=== PATIENT | male | born 1960 | race Caucasian/White ===

== ENCOUNTER 2016-11-11 14:16 | Inpatient (IN) ==
--- NOTE | 2016-11-10 21:45 | Discharge Summary ---
<Gretchen Yoon - Last Filed: 11/10/16 21:41> - Discharge Diagnosis (1) Arthritis of left hip Priority: Primary Status: Acute (2) Tobacco abuse Priority: Secondary Status: Chronic (3) Chronic obstructive pulmonary disease Priority: Secondary Status: Chronic Qualifiers: COPD type: unspecified COPD Qualified Code(s): J44.9 - Chronic obstructive pulmonary disease, unspecified (4) Spinal stenosis of lumbar region Priority: Secondary Status: Chronic (5) Tobacco abuse Priority: Secondary Status: Chronic - Discharge Medications Home Medications: Aspirin Enteric Coated [Aspirin EC] 325 mg PO DAILY #21 tablet. 11/10/16 [Rx] OxyCODONE Immed Rel [Roxicodone 5 MG] 5 - 10 mg PO Q6HR PRN #40 tablet 11/10/16 [Rx] Allergies/Adverse Reactions: Allergies ibuprofen [From Advil] Allergy (Mild, Verified 05/24/16 14:41) Hives venlafaxine [From Effexor] Allergy (Mild, Verified 05/24/16 14:41) Vomiting Primary care physician: Tai Mao DO - Patient Status Disposition: Home, Self-Care Condition: Good - Discharge Instructions Follow Up With: Luis Davalos MD [Partnered Physician] - 12/10/16 9:40 am Gretchen Yoon, KARLA [Physician Fence Maker] - 11/21/16 11:15 am Tai Mao DO [Primary Care Provider] - - Hospital Course Hospital course: Mr. Pope is a 56 year old male - Time Spent with Patient Total time spent providing and/or coordinating discharge services: <Luis Davalos - Last Filed: 11/13/16 06:30> Date of Encounter: 11/13/16 Time of Encounter: 06:29 - Discharge Diagnosis (1) Arthritis of left hip Priority: Primary Status: Acute (2) Tobacco abuse Priority: Secondary Status: Chronic (3) Anxiety Priority: Secondary Status: Chronic (4) Major depressive disorder, recurrent Priority: Secondary Status: Chronic Qualifiers: Active/Remission status: currently active Major depression episode severity : moderate Qualified Code(s): F33.1 - Major depressive disorder, recurrent, moderate (5) Suicidal ideation Priority: Secondary Status: Chronic (6) Chronic obstructive pulmonary disease Priority: Secondary Status: Chronic Qualifiers: COPD type: unspecified COPD Qualified Code(s): J44.9 - Chronic obstructive pulmonary disease, unspecified (7) Spinal stenosis of lumbar region Priority: Secondary Status: Chronic (8) Tobacco abuse Priority: Secondary Status: Chronic Primary care physician: Tai Moa DO - Patient Status Functional capacity at discharge: uses cane/walker Overall status at discharge: patient is progressing back to baseline - Hospital Course Hospital course: Mr. Pope is a 56 year old male uneventful post op course antibiotics and PT dc on asa dvt prophylaxis - Time Spent with Patient Total time spent providing and/or coordinating discharge services:
[2016-11-11] MEDS ORDERED: Famotidine 20 MG/2 ML VIAL IVP ONE (15:02)
[2016-11-11] MEDS ORDERED: Acetaminophen IV 1,000 MG/100 ML INFUS..BTL IVPB ONE (15:02)
--- NOTE | 2016-11-11 15:04 | History & Physical Report ---
Date of Encounter: 11/11/16 Time of Encounter: 15:04 24 Hour HP Update - Instructions Instructions: If the History and Physical is less than 30 days old and was completed prior to A.M. admission and or procedure and has NOT been updated on calendar day of procedure please complete this update prior to performing procedure. - Update Patient reports changes in Medical Condition: No Changes in assessment/condition: No Changes in Medication: No Preop tests/diagnostics Reviewed: Yes Surgery Remains Indicated: Yes Consent for Planned Operative Procedure(s) Verified: Yes - Pre-Operative Checklist Preoperative Checklist Indicated: No Prophylactic Antibiotic Ordered: Yes Is VTE Prophylaxis Indicated?: Yes
--- NOTE | 2016-11-11 15:05 | Anesthesia Evaluation PreOp ---
Date of Encounter: 11/11/16 Time of Encounter: 15:00 - Past History Planned Operation: Left Total Hip Cardiac History: Denies any Significant Hx, Other (Hx PE) Pulmonary History: Smoker HAND OUTSIDE CUTTER History: Denies Any Significant HX Other Medical History: Other (Osteoarthritis Hip) Anesthesia History: No Prior Anesthetic Complications Alcohol Use: none Drug use: none Medications and Allergies Methocarbamol [Robaxin-750] 750 mg PO QID PRN #20 tablet 10/20/16 [Rx] Tramadol HCl [Ultram] 50 mg PO QID PRN #16 tab 10/20/16 [Rx] Aspirin Enteric Coated [Aspirin EC] 325 mg PO DAILY #21 tablet. 11/10/16 [Rx] OxyCODONE Immed Rel [Roxicodone 5 MG] 5 - 10 mg PO Q6HR PRN #40 tablet 11/10/16 [Rx] Allergies ibuprofen [From Advil] Allergy (Mild, Verified 05/24/16 14:41) Hives venlafaxine [From Effexor] Allergy (Mild, Verified 05/24/16 14:41) Vomiting - Meds/Allergy Pre-op Review Medications Reviewed: Yes Allergies Reviewed: Yes Beta Blockers on Current Med List: No Anesthesia Results - Labs Laboratory Tests 11/05/16 11/05/16 16:05 16:05 Hgb 15.3 Hct 46.4 Plt Count 216 Sodium 135 L Potassium 4.5 BUN 14 Creatinine 1.15 Anesthesia Exam O2 Sat Height 1.8 m Weight 93.043 kg Height: 5'11 Weight: 205 lbs NPO (# of Hours): MN Pain Scale: 0 - HEENT Pupil (Motor): Pupils equal, EOMI Mallampati: II Teeth: Edentulous Oral Opening: Less than or equal to 3 - HAND OUTSIDE CUTTER LOC: Oriented HAND OUTSIDE CUTTER Motor: Normal RUE, Normal LUE, Normal RLE, Normal LLE, Normal Face HAND OUTSIDE CUTTER Sensory: Normal: RUE, LUE, RLE, LLE, Face - Cardiac Rhythm: Regular Murmur: None JVD: No Carotid Bruit: No - Pulmonary Breath Sounds: bilateral Clear Respiratory Effort: Symmetrical Anesthesia Assess/Plan ASA Score: 2 Modified Rhona Scale for Level of Consciousness: Cooperative, oriented, and tranquil Anesthetic Plan: General Monitoring Plan: Standard Monitors Recovery Plan: PACU (Discussed GA, agrees to proceed)
[2016-11-11] MEDS ORDERED: Albuterol 2.5 MG/3 ML NEBULIZER IH ONE (15:10)
[2016-11-11] MEDS ORDERED: CeFAZolin Pre 2,000 MG/100 ML 2,000 MG/100 ML BAG IVPB ONE (15:10)
[2016-11-11] MEDS ORDERED: Ringers Solution, Lactated 1,000 ML IVC SCH ×3 (15:15→18:42)
[2016-11-11] MEDS ORDERED: Lidocaine -MPF 2% 2 ML VIAL ONE (15:59)
[2016-11-11] MEDS ORDERED: *HR* Propofol 200 MG/20 ML VIAL IVP ONE (15:59)
[2016-11-11] MEDS ORDERED: *HR* FentaNYL (PF) 100 MCG/2 ML VIAL ONE (16:01)
[2016-11-11] MEDS ORDERED: *HR* Midazolam HCl 2 MG/2 ML VIAL ONE (16:01)
[2016-11-11] MEDS ORDERED: *HR* HYDROmorphone 2 MG/ML SYRINGE ONE (16:35)
--- NOTE | 2016-11-11 16:55 | Orthopedic Operative Note ---
Date of procedure: 11/11/16 Pre-op diagnosis: Left hip arthritis Post-op diagnosis: same Implants: Procedure: Left Total Hip Replacment Estimated blood loss: 200 cc Hardware: Biomet DM Cup: 56 G7 fin cup Femoral size 14 echo full profile lateralized stem Head: +3 head with Batsheva Procedural Notes: Grade 3 arthritic changes femoral head acetabular socket Operative procedure: The patient was brought to the operating room and placed on the operating room table. After general anesthesia was administered the patient was placed in the lateral decubitus position with the operative leg up. All pressure points were padded appropriately and the head was stabilized in the neutral position. The operative extremity was prepped and draped in the sterile surgical fashion patient received IV antibiotic prior to skin incision. A standard posterior approach is made to the operative hip, the incision was made through the skin and subcutaneous tissue hemostasis was obtained with Bovie cautery. Using careful sharp dissection the fascia was identified and incised exposing the external rotators. The external rotators were released off the greater trochanter and tagged with #2 FiberWire suture. The capsule was T'd open and the hip was brought into internal rotation. Patient noted to have grade 3 arthritic changes femoral head. The femoral neck cut was made at the appropriate level. An anterior capsulotomy was performed for the anterior retractor. Soft tissues removed from the acetabulum. Patient noted to have grade 3 arthritic changes acetabulum. Acetabulum was first reamed medially, and then reamed in 15 degrees of anteversion and 45 degrees off the horizontal. It was reamed up to the appropriate size 56 The appropriate-sized 56 acetabular cup was impacted in place in 15 degrees of anteversion and 45 degrees off the horizontal. This had good fit and fixation. The hip was brought back in to internal rotation and prepared with the box liner followed by the canal finder followed by broaching process in 20 degrees anteversion. It was broached up to the appropriate size 14. The femoral implant was impacted in place in 20 degrees of anteversion. Trial reduction found the hip to be stable with +3 head and Batsheva. The trials were removed and the real implants were impacted in place. The hip was reduced, patient had apparent equal leg lengths. The hip had excellent stability with forward flexion to 90 degrees adduction of 30 degrees and internal rotation of 60 degrees. The hip had no shuck. The hips after 2 minutes with a Betadine saline solution. It was irrigated out with 2 L of pulse irrigation. The external rotators were reattached to drill holes in the greater trochanter. Fascia was closed with a running #2 PDS suture. The deep tissue was irrigated and closed deep with #1 PDS suture superficially with 0 PDS suture and skin was closed with Dermabond and skin natalio. The patient was placed in a sterile dressing and abduction pillow. The patient was extubated and transferred to the recovery room in stable condition. Anesthesia: GETA Surgeon: Luis Davalos Condition: stable Disposition: PACU
[2016-11-11] MEDS ORDERED: *HR* Promethazine 25 MG/ML VIAL IVP PRN (16:57)
[2016-11-11] MEDS: *HR* HYDROmorphone (PF) 1 MG/ML SYRINGE IVP PRN ×7 (17:24→21:20)
[2016-11-11 17:47] LABS: Hematocrit 38.7 % (37.5-50.1)
[2016-11-11 17:48] LABS: Hemoglobin 12.5 g/dL (12.9-16.9)
[2016-11-11] MEDS ORDERED: *HR* Enoxaparin 30 MG/0.3 ML SYRINGE SQ SCH (18:00)
--- NOTE | 2016-11-11 18:18 | Anesthesia Evaluation Post Op ---
Date of Encounter: 11/11/16 Time of Encounter: 18:20 - Vital Signs Vital Signs: Vital Signs/O2 Sat/Glucose, Most Current Temp Pulse Resp BP Pulse Ox 11/11/16 18:08 78 24 112/91 95 11/11/16 17:58 80 22 125/79 97 11/11/16 17:48 98.2 F 80 24 123/72 97 11/11/16 17:38 75 24 104/74 96 11/11/16 17:28 87 20 122/89 95 11/11/16 17:23 83 16 118/99 96 11/11/16 17:18 97.9 F 79 12 127/88 95 11/11/16 15:12 98.1 F 82 18 135/85 96 - Lungs Lungs: Clear Ascult./Percussion - Airway Airway: Non-obstructed - Cardiovascular Regular Rate - Mental Status Mental Status: Alert & Oriented, Answers Appropriately - Pain Pain Scale: 2 - Nausea Vomiting Nausea Vomiting: Not Present - Hydration Hydration: Ice chips - Discharge PostOp Status: Transfer Patient to floor
[2016-11-11] MEDS ORDERED: Temazepam 15 MG CAPSULE PO PRN (18:42)
[2016-11-11] MEDS ORDERED: Ondansetron 4 MG/2 ML VIAL IVP PRN (18:42)
[2016-11-11] MEDS ORDERED: Sennosides 8.6 MG TABLET PO PRN (18:42)
[2016-11-11] MEDS ORDERED: Naloxone 0.4 MG/ML INJ IVP PRN (18:42)
[2016-11-11] MEDS ORDERED: *HR* OxyCODONE Immed Rel 5 MG TABLET PO PRN (18:42)
[2016-11-11] MEDS ORDERED: Acetaminophen 325 MG TABLET PO PRN (18:42)
[2016-11-11] MEDS ORDERED: MOM Conc 10 ML UD.LIQ PO PRN (18:42)
[2016-11-11] MEDS: *HR* OxyCODONE Immed Rel 5 MG TABLET PO PRN (19:53)
[2016-11-11] MEDS: Ascorbic Acid 500 MG TABLET PO SCH (19:53)
[2016-11-11] MEDS: ceFAZolin 2,000 MG in D5% in Water 100 ML IVPB SCH (22:49)
[2016-11-12] MEDS: *HR* HYDROmorphone (PF) 1 MG/ML SYRINGE IVP PRN ×8 (00:03→22:35)
[2016-11-12] MEDS: *HR* OxyCODONE Immed Rel 5 MG TABLET PO PRN ×5 (01:04→21:29)
[2016-11-12 05:26] LABS: Hematocrit 33.8 % (37.5-50.1); Hemoglobin 11.1 g/dL (12.9-16.9)
[2016-11-12 05:44] LABS: BUN/Creatinine Ratio 9 (6-26); Blood Urea Nitrogen 8 mg/dL (8-26); Calcium 7.7 mg/dL (8.6-10.8); Carbon Dioxide 26 mEq/L (19-29); Chloride 102 mEq/L (98-109); Glucose 134 mg/dL (70-99); Osmolality,Calculated 282 (280-300); Sodium 136 mEq/L (136-145); eGFR For African Americans > 60 (> 60); eGFR For Non-African Americans > 60 (> 60)
[2016-11-12] MEDS: *HR* Enoxaparin 30 MG/0.3 ML SYRINGE SQ SCH ×2 (06:11→16:30)
[2016-11-12] MEDS: ceFAZolin 2,000 MG in D5% in Water 100 ML IVPB SCH (06:11)
--- NOTE | 2016-11-12 06:38 | Orthopedics Progress Note ---
Date of Encounter: 11/12/16 Time of Encounter: 06:38 - Assessment and Plan (1) Arthritis of left hip Current Visit: Yes Status: Acute (2) Tobacco abuse Current Visit: Yes Status: Chronic (3) Anxiety Current Visit: No Status: Chronic (4) Major depressive disorder, recurrent Current Visit: No Status: Chronic Qualifiers: Active/Remission status: currently active Major depression episode severity : moderate Qualified Code(s): F33.1 - Major depressive disorder, recurrent, moderate (5) Suicidal ideation Current Visit: No Status: Chronic (6) Chronic obstructive pulmonary disease Current Visit: No Status: Chronic Qualifiers: COPD type: unspecified COPD Qualified Code(s): J44.9 - Chronic obstructive pulmonary disease, unspecified (7) Spinal stenosis of lumbar region Current Visit: No Status: Chronic (8) Tobacco abuse Current Visit: No Status: Chronic Subjective Interval history: patient doing well no complaints afvss operative extremity dressing c/d/i calves nt NVI continue with postop care hct 31 Objective Vital signs: Vital Signs Temp Pulse Resp BP Pulse Ox 11/12/16 03:47 98.5 F 82 19 112/54 96 11/11/16 23:47 98.3 F 81 18 118/62 95 11/11/16 22:05 98.5 F 80 15 113/60 94 L 11/11/16 21:17 98.9 F 86 15 115/49 95 11/11/16 19:56 97.5 F L 80 18 118/69 94 L 11/11/16 19:34 98.5 F 86 16 143/60 95 11/11/16 18:46 95 11/11/16 18:42 98 F 79 16 118/75 96 11/11/16 18:28 98.3 F 76 18 121/65 96 11/11/16 18:18 98.3 F 73 20 111/69 94 L 11/11/16 18:08 78 24 112/91 95 11/11/16 17:58 80 22 125/79 97 11/11/16 17:48 98.2 F 80 24 123/72 97 11/11/16 17:38 75 24 104/74 96 11/11/16 17:28 87 20 122/89 95 11/11/16 17:23 83 16 118/99 96 11/11/16 17:18 97.9 F 79 12 127/88 95 11/11/16 15:12 98.1 F 82 18 135/85 96 Intake and Output 11/11/16 11/11/16 11/12/16 15:59 23:59 07:59 Intake Total 700 / 700 700 / 700 Output Total 200 / 200 500 / 500 Balance 500 / 500 200 / 200 Intake: IV Fluids 100 / 100 100 / 100 Ancef 2,000 MG In 100 / 100 Dextrose 5% 100 ML @ 200 mls/hr IVPB Q8H TEDDY Rx#: [id number] Ancef Premix 2,000 MG/100 100 / 100 ML 2,000 mg In 100 ml @ 200 mls/hr IVPB PREOP ONE Rx#:[id number] Oral 600 / 600 600 / 600 Output: Urine 500 / 500 Estimated Blood Loss 200 / 200 Other: Meal Dinner Percent of Meal Consumed 100% Weight 93.043 kg - Labs CBC & BMP: 11/12/16 04:38 11/12/16 04:38 Labs: Abnormal lab results Hgb 11.1 g/dL (12.9-16.9) L 11/12/16 04:38 Hct 33.8 % (37.5-50.1) L 11/12/16 04:38 Glucose 134 mg/dL (70-99) H 11/12/16 04:38 Calcium 7.7 mg/dL (8.6-10.8) L 11/12/16 04:38 - VTE Documentation of Mechanical Device: Venous foot pump, device Consult Discharge Plan - Plan Referrals: Tai Mao DO [Primary Care Provider] -
[2016-11-12] MEDS: Ascorbic Acid 500 MG TABLET PO SCH ×2 (08:09→16:30)
[2016-11-12] MEDS: Multivit/Ca/Min/Fe/FA 1 TAB TABLET PO SCH (08:09)
[2016-11-12] MEDS ORDERED: Ketorolac 30 MG/ML VIAL IVP ONE (21:12)
[2016-11-12] MEDS ORDERED: Gabapentin 300 MG CAPSULE PO SCH (21:15)
[2016-11-13] MEDS: *HR* OxyCODONE Immed Rel 5 MG TABLET PO PRN ×3 (01:52→11:00)
[2016-11-13] MEDS: *HR* HYDROmorphone (PF) 1 MG/ML SYRINGE IVP PRN ×2 (05:13→08:15)
[2016-11-13] MEDS: *HR* Enoxaparin 30 MG/0.3 ML SYRINGE SQ SCH (05:14)
[2016-11-13 06:27] LABS: Hemoglobin 11.1 g/dL (12.9-16.9)
--- NOTE | 2016-11-13 06:30 | Orthopedics Progress Note ---
Date of Encounter: 11/13/16 Time of Encounter: 06:30 - Assessment and Plan (1) Arthritis of left hip Current Visit: Yes Status: Acute (2) Tobacco abuse Current Visit: Yes Status: Chronic (3) Anxiety Current Visit: No Status: Chronic (4) Major depressive disorder, recurrent Current Visit: No Status: Chronic Qualifiers: Active/Remission status: currently active Major depression episode severity : moderate Qualified Code(s): F33.1 - Major depressive disorder, recurrent, moderate (5) Suicidal ideation Current Visit: No Status: Chronic (6) Chronic obstructive pulmonary disease Current Visit: No Status: Chronic Qualifiers: COPD type: unspecified COPD Qualified Code(s): J44.9 - Chronic obstructive pulmonary disease, unspecified (7) Spinal stenosis of lumbar region Current Visit: No Status: Chronic (8) Tobacco abuse Current Visit: No Status: Chronic Subjective Interval history: patient doing well no complaints afvss operative extremity dressing c/d/i calves nt NVI continue with postop care hct 34 dc today Objective Vital signs: Vital Signs Temp Pulse Resp BP Pulse Ox 11/13/16 03:54 98.7 F 82 17 110/65 93 L 11/13/16 00:00 99.4 F 77 18 132/66 92 L 11/12/16 20:00 98.8 F 76 17 117/69 94 L 11/12/16 14:42 98.0 F 74 16 131/73 93 L 11/12/16 10:42 98.8 F 74 16 94/54 93 L 11/12/16 07:02 98.8 F 82 16 121/66 93 L Intake and Output 11/12/16 11/12/16 11/13/16 15:59 23:59 07:59 Intake Total 700 / 700 300 / 300 Output Total 1280 / 1280 1300 / 1300 Balance -580 / -580 -1000 / -1000 Intake: Oral 700 / 700 300 / 300 Output: Urine 1280 / 1280 1300 / 1300 Other: # Voids 1 - Labs CBC & BMP: 11/13/16 05:55 11/12/16 04:38 Labs: Abnormal lab results Hgb 11.1 g/dL (12.9-16.9) L 11/13/16 05:55 Hct 34.0 % (37.5-50.1) L 11/13/16 05:55 Glucose 134 mg/dL (70-99) H 11/12/16 04:38 Calcium 7.7 mg/dL (8.6-10.8) L 11/12/16 04:38 - VTE Documentation of Mechanical Device: Venous foot pump, device Consult Discharge Plan - Plan Referrals: Luis Davalos MD [Partnered Physician] - 12/10/16 9:40 am Gretchen Yoon, PAC [Physician Process Machine Operator] - 11/21/16 11:15 am Tai Mao DO [Primary Care Provider] -
[2016-11-13 06:38] LABS: BUN/Creatinine Ratio 6 (6-26); Calcium 8.2 mg/dL (8.6-10.8); Carbon Dioxide 29 mEq/L (19-29); Chloride 99 mEq/L (98-109); Glucose 150 mg/dL (70-99); Osmolality,Calculated 282 (280-300); Potassium 3.7 mEq/L (3.5-4.5); Sodium 136 mEq/L (136-145); eGFR For African Americans > 60 (> 60); eGFR For Non-African Americans > 60 (> 60)
[2016-11-13 06:39] LABS: Blood Urea Nitrogen 5 mg/dL (8-26)
[2016-11-13] MEDS: Multivit/Ca/Min/Fe/FA 1 TAB TABLET PO SCH (08:16)
[2016-11-13] MEDS: Ascorbic Acid 500 MG TABLET PO SCH (08:16)
[2016-11-13 10:58] VITALS: BP 109/67
== END 2016-11-13 15:25 | disposition home or self-care (01) | DRG 470 ==
LOC: SAMDAY 14:16 → 3NENU 18:26
PROVIDERS: ADMIT Orthopaedic Surgery; ATTEND Orthopaedic Surgery

== ENCOUNTER 2017-04-22 10:17 | Observation (INO) ==
[2017-04-22] MEDS ORDERED: Ondansetron 4 MG/2 ML VIAL IVP ONE (12:14)
[2017-04-22] MEDS ORDERED: 0.9 % Sodium Chloride 1,000 ML IVC ONE (12:14)
[2017-04-22 12:57] LABS: Basophils % 0.4 %; Eosinophils # 0.1 K/mcL (0.0-0.6); Eosinophils % 0.7 %; Hematocrit 39.3 % (37.5-50.1); Hemoglobin 12.4 g/dL (12.9-16.9); Immature Granulocytes % 0.4 % (0-4); Lymphocytes % 23.7 %; Mean Corpuscular HGB Conc 31.6 g/dL (31.6-35.5); Mean Corpuscular Hemoglobin 26.4 pg (28.0-33.3); Mean Corpuscular Volume 83.8 fL (83.0-100.0); Mean Platelet Volume 10.5 fL (9.4-12.4); Monocytes # 0.3 K/mcL (0.0-1.3); Monocytes % 3.9 %; Neutrophils # 5.8 K/mcL (1.6-8.9); Platelet Count 171 K/mcL (140-400); Red Blood Count 4.69 M/mcL (4.19-5.50); Red Cell Distribution Width 14.6 % (11.5-14.5); Segmented Neutrophils % 70.9 %
[2017-04-22 13:11] LABS: Alanine Aminotransferase 7 Units/L (0-55); Albumin 3.5 g/dL (3.5-5.0); Alkaline Phosphatase 69 Units/L (38-126); Amylase 53 Units/L (25-125); Aspartate Amino Transferase 12 Units/L (5-34); BUN/Creatinine Ratio 10 (6-26); Bilirubin,Direct 0.2 mg/dL (0.0-0.5); Bilirubin,Indirect 0.2 mg/dL (0.0-1.2); Bilirubin,Total 0.4 mg/dL (0.2-1.2); Blood Urea Nitrogen 8 mg/dL (8-26); Calcium 8.9 mg/dL (8.6-10.8); Carbon Dioxide 30 mEq/L (19-29); Chloride 103 mEq/L (98-109); Globulin 3.6 g/dL (2.4-3.5); Glucose 93 mg/dL (70-99); Lipase 11 Units/L (8-78); Osmolality,Calculated 284 (280-300); Sodium 138 mEq/L (136-145); Total Protein 7.1 g/dL (6.0-8.3); eGFR For African Americans > 60 (> 60); eGFR For Non-African Americans > 60 (> 60)
--- NOTE | 2017-04-22 13:16 | Emergency Department Note ---
Disposition Clinical Impression: Bronchogenic carcinoma Pneumonia Qualifiers: Pneumonia type: due to unspecified organism Laterality: unspecified laterality Lung location: unspecified part of lung Qualified Code(s): J18.9 - Pneumonia, unspecified organism Disposition: Admitted As Inpatient Condition: Good Referrals: Tai Mao DO [Primary Care Provider] - Forms: Work/School Release, ED Satisfaction Letter Time of Disposition: 15:49 Abdominal Pain HPI - General Chief Complaint: ED Abdominal Pain Stated Complaint: ABD Pain / Blood in Stool Time Seen by Provider: 04/22/17 12:13 Source: patient, EMS Mode of arrival: ambulatory Limitations: no limitations Nursing Notes Reviewed: Yes Vital Signs Reviewed: Yes - History of Present Illness HPI Narrative: 56 year old male with HX of recent hernia surgery per Dr. Santos on 04/17/17. He states that since the surgeyr he has been experiencing increased suprapubic and lower abdominal pain that is increasing without improvement even with his percocet therapy. He states that he has been trying to call into the office and he finally got the nurse on the phone who told him to come to the ER for evalaution if his pain continueed. Cassie denies fevers, chest pain, shortness of brath. Although he has experiencined increase cough with blood tinged sputum without chest pain and is long-standing smoker. But he has experienced increase nasuea with one episode of vomitting NBNB. Cassie states that his bowel habit has been normal and he has not had difficulty with urination. Patient states that it is tender to the touch his surgocal wounds but does not see any evidence of drainage or fluncutance although it is warm to the touch. Pain Scale: 10 - Related Data Previous Rx's Medication Instructions Recorded OxyCODONE/APAP 10/325 [Percocet 1 each PO Q6HR PRN #24 tab 04/17/17 10/325 MG] Allergies Allergy/AdvReac Type Severity Reaction Status Date / Time venlafaxine [From Effexor] Allergy Mild Vomiting Verified 04/22/17 10:21 ibuprofen [From Advil] Allergy swelling Verified 04/22/17 10:21 ondansetron Allergy Swelling Verified 04/22/17 10:21 [From Zofran (as hydrochloride)] Constitutional: Denies: fever, chills, weakness, weight change Eyes: Denies: eye pain, eye discharge, vision change ENT ED: Denies: ear pain, throat pain, dental pain, hearing loss, epistaxis, congestion, dysphagia Cardiovascular: Denies: chest pain, palpitations, dyspnea on exertion, edema, syncope Respiratory: Reports: cough, hemoptysis. Denies: dyspnea, wheezes, stridor Gastrointestinal: Reports: abdominal pain, nausea, vomiting. Denies: diarrhea, constipation, hematemesis, melena, hematochezia Genitourinary: Denies: urgency, dysuria, frequency, hematuria Musculoskeletal: Denies: back pain, neck pain, arthralgia, myalgia Integumentary: Denies: rash, abrasion, lesions Neurological: Denies: headache, weakness, numbness, paresthesias, confusion, abnormal gait, vertigo Psychiatric: Denies: anxiety, depression, suicidal thoughts, homicidal thoughts , auditory hallucinations, visual hallucinations Endocrine: Denies: fatigue Hematological/Lymphatic: Denies: easy bleeding, easy bruising Allergic/Immunologic: Denies: facial swelling, urticaria Abdominal Pain PMH - Past Medical History Medical history: Reports: pulmonary embolus, other Male Surgical History: Reports: hip replacement Psychiatric history: Reports: anxiety, depression, previous psychiatric hospitalization - Social History Smoking status: Current every day smoker Alcohol use: Reports: none Drug use: Reports: none Physical Exam - General Limitations: no limitations General appearance: alert, in no apparent distress - Head Head exam: atraumatic, normocephalic, normal inspection - Eye Eye exam: Present: normal appearance, PERRL, EOMI - Expanded Eye Exam Pupils: Left: reactive - ENT ENT exam: normal exam, normal oropharynx, mucous membranes moist - Expanded ENT Exam External ear exam: Present: normal external inspection Mouth exam: Present: normal external inspection Teeth exam: Present: normal inspection Throat exam: Present: normal inspection - Neck Neck exam: Present: normal inspection, full ROM, trachea midline - Chest Chest inspection: Present: normal inspection, symmetric chest wall rise - Respiratory Respiratory exam: Present: normal lung sounds bilaterally - Cardiovascular Cardiovascular exam: Present: regular rate, normal rhythm, normal heart sounds - Abdominal Exam Abdominal exam: Present: soft, tenderness, normal bowel sounds, scar (fresh surgical scar locaetd under the umbilical area that are healing well, warm with erythamatous changes without any drainage or flunctunace present). 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 Absent: black stool, bloody stool, fecal impaction, hemorrhoids, mass, tenderness, prostate tenderness, prostate enlargement - Extremities Exam Extremities exam: Present: normal inspection, full ROM. Absent: tenderness, pedal edema - Expanded Upper Extremity Exam Shoulder exam: Present: normal inspection, full ROM Arm exam: Present: normal inspection, full ROM Elbow exam: Present: normal inspection, full ROM Forearm/Wrist exam: Present: normal inspection, full ROM Hand exam: Present: normal inspection, full ROM Vascular exam: Normal: capillary refill, radial pulse - Expanded Lower Extremity Exam Hip/Pelvis exam: Present: normal inspection, full ROM Upper leg exam: Present: normal inspection, full ROM Knee exam: Present: normal inspection, full ROM Lower leg exam: Present: normal inspection, full ROM Ankle exam: Present: normal inspection, full ROM Foot/toe exam: Present: normal inspection, full ROM Neurovascular/Tendon exam: Absent: motor deficit, sensory deficit, tendon deficit - Back Exam Back exam: Present: normal inspection, full ROM. Absent: tenderness - Neurological Exam Neurological exam: Present: alert, oriented X3 - Expanded Neurological Exam Patient oriented to: Present: person, place, time Coma Scale Eye Opening: Spontaneous Coma Scale Motor Response: Obeys Commands Coma Scale Verbal Response: Oriented Coma Scale Total: 15 - Psychiatric Psychiatric exam: Present: normal affect, normal mood - Skin Skin exam: Present: warm, dry, intact, normal color Course Course Narrative: we will do a abdomnial lab workup in addition to IVF and pain control as well ABCT. - Reevaluation(s) Reevaluation #1: mara has a possible mass in his lung, we will do a CTA chest of the chest to rule out pnuemonia vs. mass. Time: 13:20 - Consultations Consultation #1: discussed case with Dr. Ellison and she accepts cassie for admission. Time: 15:48 Vital Signs Temperature 98.1 F 04/22/17 10:19 Pulse Rate 91 04/22/17 10:19 Respiratory Rate 16 04/22/17 10:19 Blood Pressure 125/79 04/22/17 10:19 O2 Sat by Pulse Oximetry 98 04/22/17 10:19 Temperature 98.1 F 04/22/17 10:19 Pulse Rate 72 04/22/17 15:21 Respiratory Rate 16 04/22/17 15:21 Blood Pressure 144/79 04/22/17 15:21 O2 Sat by Pulse Oximetry 96 04/22/17 15:21 Oxygen Delivery Oxygen Delivery Room Air Abdominal Pain - Lab Data Result diagrams: 04/22/17 12:49 04/22/17 12:49 Lab Results 04/22/17 04/22/17 04/22/17 Range/Units 12:14 12:49 12:49 WBC 8.2 (4.3-11.1) K/mcL RBC 4.69 (4.19-5.50) M/mcL Hgb 12.4 L (12.9-16.9) g/dL Hct 39.3 (37.5-50.1) % MCV 83.8 (83.0-100.0) fL MCH 26.4 L (28.0-33.3) pg MCHC 31.6 (31.6-35.5) g/dL RDW 14.6 H (11.5-14.5) % Plt Count 171 (140-400) K/mcL MPV 10.5 (9.4-12.4) fL Immature Gran % 0.4 (0-4) % Seg Neutrophils % 70.9 % Lymphocytes % 23.7 % Monocytes % 3.9 % Eosinophils % 0.7 % Basophils % 0.4 % Neutrophils # 5.8 (1.6-8.9) K/mcL Lymphocytes # 2.0 (0.6-4.6) K/mcL Monocytes # 0.3 (0.0-1.3) K/mcL Eosinophils # 0.1 (0.0-0.6) K/mcL Basophils # 0.0 (0.0-0.2) K/mcL PT (9.4-12.1) Seconds INR APTT (26.0-36.0) Seconds Sodium 138 (136-145) mEq/L Potassium 4.0 (3.5-4.5) mEq/L Chloride 103 (98-109) mEq/L Carbon Dioxide 30 H (19-29) mEq/L BUN 8 (8-26) mg/dL Creatinine 0.81 (0.72-1.25) mg/dL Est GFR ( Amer) > 60 (> 60) Est GFR (Non-Af Amer) > 60 (> 60) BUN/Creatinine Ratio 10 (6-26) Glucose 93 (70-99) mg/dL Calculated Osmolality 284 (280-300) Lactic Acid (0.5-2.2) mmol/L Calcium 8.9 (8.6-10.8) mg/dL Total Bilirubin 0.4 (0.2-1.2) mg/dL Direct Bilirubin 0.2 (0.0-0.5) mg/dL Indirect Bilirubin 0.2 (0.0-1.2) mg/dL AST 12 (5-34) Units/L ALT 7 (0-55) Units/L Alkaline Phosphatase 69 (38-126) Units/L Troponin I (0-0.03) ng/mL Serum Total Protein 7.1 (6.0-8.3) g/dL Albumin 3.5 (3.5-5.0) g/dL Globulin 3.6 H (2.4-3.5) g/dL Albumin/Globulin Ratio 1.0 L (1.1-2.2) Amylase 53 (25-125) Units/L Lipase 11 (8-78) Units/L Urine Color (Yellow) Urine Clarity (Clear) Urine pH (5.0-8.0) pH Units Ur Specific [place] (1.010-1.025) Urine Protein (Neg-Trace) mg/dL Urine Glucose (UA) (Normal) mg/dL Urine Ketones (Negative) mg/dL Urine Blood (Negative) Urine Nitrite (Negative) Urine Bilirubin (Negative) Urine Urobilinogen (Normal) mg/dL Ur Leukocyte Esterase (Negative) Ur Culture Indicated? (NO) Stool Occult Blood Negative (Negative) Specimen Rejected 04/22/17 04/22/17 04/22/17 Range/Units 12:49 12:49 12:49 WBC (4.3-11.1) K/mcL RBC (4.19-5.50) M/mcL Hgb (12.9-16.9) g/dL Hct (37.5-50.1) % MCV (83.0-100.0) fL MCH (28.0-33.3) pg MCHC (31.6-35.5) g/dL RDW (11.5-14.5) % Plt Count (140-400) K/mcL MPV (9.4-12.4) fL Immature Gran % (0-4) % Seg Neutrophils % % Lymphocytes % % Monocytes % % Eosinophils % % Basophils % % Neutrophils # (1.6-8.9) K/mcL Lymphocytes # (0.6-4.6) K/mcL Monocytes # (0.0-1.3) K/mcL Eosinophils # (0.0-0.6) K/mcL Basophils # (0.0-0.2) K/mcL PT (9.4-12.1) Seconds INR APTT (26.0-36.0) Seconds Sodium (136-145) mEq/L Potassium (3.5-4.5) mEq/L Chloride (98-109) mEq/L Carbon Dioxide (19-29) mEq/L BUN (8-26) mg/dL Creatinine (0.72-1.25) mg/dL Est GFR ( Amer) (> 60) Est GFR (Non-Af Amer) (> 60) BUN/Creatinine Ratio (6-26) Glucose (70-99) mg/dL Calculated Osmolality (280-300) Lactic Acid 0.7 (0.5-2.2) mmol/L Calcium (8.6-10.8) mg/dL Total Bilirubin (0.2-1.2) mg/dL Direct Bilirubin (0.0-0.5) mg/dL Indirect Bilirubin (0.0-1.2) mg/dL AST (5-34) Units/L ALT (0-55) Units/L Alkaline Phosphatase (38-126) Units/L Troponin I 0.00 (0-0.03) ng/mL Serum Total Protein (6.0-8.3) g/dL Albumin (3.5-5.0) g/dL Globulin (2.4-3.5) g/dL Albumin/Globulin Ratio (1.1-2.2) Amylase (25-125) Units/L Lipase (8-78) Units/L Urine Color (Yellow) Urine Clarity (Clear) Urine pH (5.0-8.0) pH Units Ur Specific [place] (1.010-1.025) Urine Protein (Neg-Trace) mg/dL Urine Glucose (UA) (Normal) mg/dL Urine Ketones (Negative) mg/dL Urine Blood (Negative) Urine Nitrite (Negative) Urine Bilirubin (Negative) Urine Urobilinogen (Normal) mg/dL Ur Leukocyte Esterase (Negative) Ur Culture Indicated? (NO) Stool Occult Blood (Negative) Specimen Rejected Clotted 04/22/17 04/22/17 Range/Units 13:26 13:45 WBC (4.3-11.1) K/mcL RBC (4.19-5.50) M/mcL Hgb (12.9-16.9) g/dL Hct (37.5-50.1) % MCV (83.0-100.0) fL MCH (28.0-33.3) pg MCHC (31.6-35.5) g/dL RDW (11.5-14.5) % Plt Count (140-400) K/mcL MPV (9.4-12.4) fL Immature Gran % (0-4) % Seg Neutrophils % % Lymphocytes % % Monocytes % % Eosinophils % % Basophils % % Neutrophils # (1.6-8.9) K/mcL Lymphocytes # (0.6-4.6) K/mcL Monocytes # (0.0-1.3) K/mcL Eosinophils # (0.0-0.6) K/mcL Basophils # (0.0-0.2) K/mcL PT 12.3 H (9.4-12.1) Seconds INR 1.1 APTT 29.1 (26.0-36.0) Seconds Sodium (136-145) mEq/L Potassium (3.5-4.5) mEq/L Chloride (98-109) mEq/L Carbon Dioxide (19-29) mEq/L BUN (8-26) mg/dL Creatinine (0.72-1.25) mg/dL Est GFR ( Amer) (> 60) Est GFR (Non-Af Amer) (> 60) BUN/Creatinine Ratio (6-26) Glucose (70-99) mg/dL Calculated Osmolality (280-300) Lactic Acid (0.5-2.2) mmol/L Calcium (8.6-10.8) mg/dL Total Bilirubin (0.2-1.2) mg/dL Direct Bilirubin (0.0-0.5) mg/dL Indirect Bilirubin (0.0-1.2) mg/dL AST (5-34) Units/L ALT (0-55) Units/L Alkaline Phosphatase (38-126) Units/L Troponin I (0-0.03) ng/mL Serum Total Protein (6.0-8.3) g/dL Albumin (3.5-5.0) g/dL Globulin (2.4-3.5) g/dL Albumin/Globulin Ratio (1.1-2.2) Amylase (25-125) Units/L Lipase (8-78) Units/L Urine Color Yellow (Yellow) Urine Clarity Clear (Clear) Urine pH 7.0 (5.0-8.0) pH Units Ur Specific [place] 1.009 L (1.010-1.025) Urine Protein Negative (Neg-Trace) mg/dL Urine Glucose (UA) Normal (Normal) mg/dL Urine Ketones Negative (Negative) mg/dL Urine Blood Negative (Negative) Urine Nitrite Negative (Negative) Urine Bilirubin Negative (Negative) Urine Urobilinogen Normal (Normal) mg/dL Ur Leukocyte Esterase Negative (Negative) Ur Culture Indicated? NO (NO) Stool Occult Blood (Negative) Specimen Rejected - EKG Data EKG attestation: Yes I reviewed and interpreted this EKG. EKG results narrative: NSR with rate of 68. NO STEMI. normal intervals. 1229 no old ekg.
[2017-04-22 13:37] LABS: INR 1.1; Prothrombin Time 12.3 Seconds (9.4-12.1)
[2017-04-22 13:40] LABS: Activated Partial Thrombo Time 29.1 Seconds (26.0-36.0)
[2017-04-22 14:02] LABS: Bilirubin,Urine Negative (Negative); Blood,Urine Negative (Negative); Clarity,Urine Clear (Clear); Color,Urine Yellow (Yellow); Glucose,Urine (UA) Normal (Normal); Ketones,Urine Negative (Negative); Leukocyte Esterase,Urine Negative (Negative); Nitrite,Urine Negative (Negative); Protein,Urine Negative (Neg-Trace); Specific Gravity,Urine 1.009 (1.010-1.025); Urobilinogen,Urine Normal (Normal)
[2017-04-22] MEDS ORDERED: *HR* FentaNYL (PF) 100 MCG/2 ML VIAL IVP ONE (14:37)
[2017-04-22] MEDS ORDERED: Levofloxacin 750 MG/150 ML 750 MG/150 ML BAG IVPB ONE (15:03)
--- NOTE | 2017-04-22 16:10 | Internal Med History&Physical ---
<Jessy Santos - Last Filed: 04/22/17 17:55> Date of Encounter: 04/22/17 Time of Encounter: 16:10 Assessment and Plan (1) Bronchogenic carcinoma Current visit: Yes Status: Acute Patient reports 3-4 months of "irritating" pain on the right lateral chest wall , mid axillary around ribs 4 through 6. He has a 1 pack per day smoking history for the last 30 years. He denies any shortness of breath, coughing, wheezing. Chest x-ray revealed Right suprahilar and perihilar airspace opacity likely in the right upper lobe, suspicious for pneumonia. A follow-up CTA was performed: 5.0 cm x 3.3 cm cavitary mass in the perihilar right upper lobe, accounting for hilar prominence on the earlier radiograph and consistent with primary bronchogenic carcinoma. There is resultant narrowing of the right upper lobe bronchus, right upper lobe pulmonary artery, and right superior pulmonary vein. Peribronchovascular nodularity in the right upper lobe is suspicious for endobronchial spread of tumor and/or lymphangitic carcinomatosis, superimposed infection is not excluded. Focal nodular opacity in the anterior segment of the right upper lobe may represent postobstructive pneumonia or metastatic involvement. Smaller solid nodules measuring up to 0.6 cm x 0.3 cm are likely metastatic. Metastatic right hilar and interlobar lymphadenopathy. The patient has received 1 dose of Levaquin in the emergency department. Will monitor off of IV abx, as patient is afebrile, no leukocytosis, asymptomatic. CT represents spread of tumor more than PNA. Will consult pulmonology (consul will need to be called in the morning), appreciate their recommendations for further investigation of recent dx bronchogenic carcinoma. Plan: -AM labs -Pain control with acetaminophen, percocet, morphine prn -Regular diet -Pulmonology consult, please call in the morning -DVT prophylaxis: heparin SQ -GI prophylaxis: omeprazole (2) Tobacco abuse Current visit: No Status: Chronic 1 PPD 30 years smoking history Patient states that he has quit smoking as of today. (3) DVT prophylaxis Current visit: Yes Status: Acute Heparin SQ Internal Medicine - H&P: HPI Chief complaint: abdominal pain Admitted From: Home History of present illness: Mr. Pope is a 56 year old male with PMH of anxiety, depression, tobacco use and recent resection of a urachal cyst on 04/17/[address] Santos who presented to [facility] ED today complaining of increasing suprapubic and lower abdominal pain despite Percocet therapy. He notes that the pain is "irritating", non-radiating and is located right below his umbilicus. He notes that it is worse when he coughs and has pain meds today did not help him. He did have some nausea today with increased pain but did not pump. He also notes that he has had a persistent dull, aching pain on the right side of his chest that is mid axillary location around ribs 4-6. He notes that he has had this pain for 3-4 months. It is worse with deep breathing. He denies any cough, shortness of breath, shortness of breath on exertion, heartburn, headache, dizziness, fever, chills, ear pain, throat pain, rhinorrhea, wheezing, diarrhea, constipation, dysuria, back pain, numbness and tingling in the arms or legs, rashes, diaphoresis. He notes that he has a 1 pack per day smoking history for 30 years. He denies alcohol or drug use. 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 He states that he has 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 but denies exposure to radiation, beryllium, asbestos. He spends a lot of time in the [employer]. He has no recent travel, no recent sick contacts and no recent illnesses. He notes that he does not take any medication. He notes that his pain in his abdomen is currently 7\\10 after administration of pain medication. His lab work is unremarkable. Chest x-ray revealed Right suprahilar and perihilar airspace opacity likely in the right upper lobe, suspicious for pneumonia. A follow-up CTA was performed: 5.0 cm x 3.3 cm cavitary mass in the perihilar right upper lobe, accounting for hilar prominence on the earlier radiograph and consistent with primary bronchogenic carcinoma. There is resultant narrowing of the right upper lobe bronchus, right upper lobe pulmonary artery, and right superior pulmonary vein. Peribronchovascular nodularity in the right upper lobe is suspicious for endobronchial spread of tumor and/or lymphangitic carcinomatosis, superimposed infection is not excluded. Focal nodular opacity in the anterior segment of the right upper lobe may represent postobstructive pneumonia or metastatic involvement. Smaller solid nodules measuring up to 0.6 cm x 0.3 cm are likely metastatic. Metastatic right hilar and interlobar lymphadenopathy. The patient has received a dose of Levaquin in the ER and will be admitted to the hospitalist service. Past Med Surg Social Fam HX - Past Medical History Source: patient, old records reviewed Medical history: arthritis, pulmonary embolus Psychiatric history: anxiety, depression, previous psychiatric hospitalization - Past Surgical History Surgical History: appendectomy, cholecystectomy, hip replacement (bilateral), orthopedic, other (left ankle reconstruction, right shoulder repair), other ( tonsilectomy, Resection of urachal cyst 04/17/17) - Social History Smoking Status: Current every day smoker Packs per day: 1 Smokeless Tobacco Status: No Alcohol use: none Drug use: none Occupational status: previously employed (steelwork, rail road work, 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), disabled Current living situation: Home - Independent Activity Level: Independent ambulation Recent Out of Country Travel Within the Last 8 Weeks: No Exposure or Possible Exposure to Illness During Travel: No - Family History Mother Race: Family Member Ethnicity: Non- Living Status: Age at : 80 Hx Family Cancer: Yes Hx Family Endocrine Disorder: Yes (DM) Father Race: Family Member Ethnicity: Non- Living Status: Age at : 72 Cause of : Colon Cancer Hx Family Cancer: Yes (Colon Cancer) Internal Medicine - H&P: Meds OxyCODONE/APAP 10/325 [Percocet 10/325 MG] 1 each PO Q6HR PRN #24 tab 04/17/17 [ Rx] 3 Allergy/AdvReac Type Severity Reaction Status Date / Time venlafaxine [From Effexor] Allergy Mild Vomiting Verified 04/22/17 10:21 ibuprofen [From Advil] Allergy swelling Verified 04/22/17 10:21 ondansetron Allergy Swelling Verified 04/22/17 10:21 [From Zofran (as hydrochloride)] All Systems PM: A 10-system review of systems was performed and is negative for pertinent findings except as documented above in the HPI. - Constitutional Vitals: Temp Pulse Resp BP Pulse Ox 98.1 F 72 16 144/79 96 04/22/17 10:19 04/22/17 15:21 04/22/17 15:21 04/22/17 15:21 04/22/17 15:21 General appearance: Present: cooperative, A&O X 3, pleasant, no acute distress, answers questions appropriately - Head Head exam: Present: atraumatic, normocephalic - Eye Eye exam: Present: EOMI, PERRL, conjuntiva pink, sclera anicteric Pupils: Present: normal accommodation, PERRL - ENT ENT exam: Present: mucous membranes moist, normal exam, normal oropharynx - Neck Neck exam general surgery: Present: normal inspection, supple, trachea midline. Absent: lymphadenopathy, tenderness, thyromegaly - Expanded Neck Exam Neck exam: Absent: carotid bruit - Respiratory Respiratory exam: Present: rhonchi. Absent: accessory muscle use, chest wall tenderness, rales, respiratory distress, wheezes, tachypnea - Expanded Respiratory Exam Location: rhonchi: Right, Upper - Cardiovascular Cardiovascular exam: Present: RRR, +S1, +S2. Absent: diastolic murmur, gallop, rubs, systolic murmur - GI/Abdominal GI/Abdominal exam: Present: normal bowel sounds, soft, tenderness (RLQ, LLQ, suprapubic). Absent: distended Additional comments: surgical scar inferior to umbilicus, approximated, clean, dry, healing well without erythema or drainage. - Extremities Exam Extremities exam: Present: normal capillary refill, normal inspection, warm, radial pulses palpable and symmetrical. Absent: calf tenderness, cyanotic, pedal edema - Back Exam Back exam: Present: normal inspection. Absent: CVA tenderness (L), CVA tenderness (R), rash noted - Neurological Exam Neurological exam: Present: CN II-XII intact, oriented X3, no focal deficits, strengths equal and symetr throughout. Absent: motor sensory deficit, pronater drift, facial droop, speech deficit - Psychiatric Psychiatric exam: Present: normal affect, normal mood - Skin Skin exam: Present: dry, intact, normal color Internal Med - H&P Results - Labs CBC & Chem 7: 04/22/17 12:49 04/22/17 12:49 Labs: Short CBC 04/22/17 Range/Units 12:49 WBC 8.2 (4.3-11.1) K/mcL Hgb 12.4 L (12.9-16.9) g/dL Hct 39.3 (37.5-50.1) % Plt Count 171 (140-400) K/mcL Neutrophils # 5.8 (1.6-8.9) K/mcL BMP 04/22/17 12:49 Sodium 138 Potassium 4.0 Chloride 103 Carbon Dioxide 30 H BUN 8 Creatinine 0.81 Glucose 93 Calcium 8.9 Cardiac Enzymes 04/22/17 Range/Units 12:49 Troponin I 0.00 (0-0.03) ng/mL Liver Function 04/22/17 Range/Units 12:49 Total Bilirubin 0.4 (0.2-1.2) mg/dL Direct Bilirubin 0.2 (0.0-0.5) mg/dL AST 12 (5-34) Units/L ALT 7 (0-55) Units/L Alkaline Phosphatase 69 (38-126) Units/L Albumin 3.5 (3.5-5.0) g/dL Urine 04/22/17 Range/Units 13:45 Urine Color Yellow (Yellow) Urine Clarity Clear (Clear) Urine pH 7.0 (5.0-8.0) pH Units Ur Specific [place] 1.009 L (1.010-1.025) Urine Protein Negative (Neg-Trace) mg/dL Urine Glucose (UA) Normal (Normal) mg/dL - Impressions ITS Impressions Chest X-Ray 04/22/17 12:14 IMPRESSION: Right suprahilar and perihilar airspace opacity likely in the right upper lobe, suspicious for pneumonia. Recommend follow-up to resolution, as there is asymmetric right hilar prominence that could be related to an underlying mass or lymphadenopathy. D/ / Tam Davies MD / Tam Davies MD Interpreting Provider: Tam Davies MD Chest CTA 04/22/17 13:12 IMPRESSION: 1. No findings of pulmonary embolism. 2. 5.0 cm x 3.3 cm cavitary mass in the perihilar right upper lobe, accounting for hilar prominence on the earlier radiograph and consistent with primary bronchogenic carcinoma. There is resultant narrowing of the right upper lobe bronchus, right upper lobe pulmonary artery, and right superior pulmonary vein. 3. Peribronchovascular nodularity in the right upper lobe is suspicious for endobronchial spread of tumor and/or lymphangitic carcinomatosis. Superimposed infection is not excluded. 4. Focal nodular opacity in the anterior segment of the right upper lobe may represent postobstructive pneumonia or metastatic involvement. Smaller solid nodules measuring up to 0.6 cm x 0.3 cm are likely metastatic. 5. Metastatic right hilar and interlobar lymphadenopathy. D/ / Tam Davies MD / Tam Davies MD Interpreting Provider: Tam Davies MD Abdomen/Pelvis CT 04/22/17 13:14 IMPRESSION: Moderate sigmoid colon diverticulosis with no definite evidence of diverticulitis. The wall of the urinary bladder appears mildly diffusely thickened. This may be secondary to hypertrophy from outlet obstruction. Cystitis is not excluded. 1.3 cm well-circumscribed low-attenuation lesion in the liver, likely a cyst. There is no definite evidence of metastatic disease in the abdomen or pelvis. D/ / Angel Carrington MD / Angel Carrington MD Interpreting Provider: Angel Carrington MD <Vandana Ellison - Last Filed: 04/22/17 18:39> Date of Encounter: 04/22/17 Internal Medicine - H&P: HPI History of present illness: Mr. Pope is a 56 year old male All Systems PM: A 10-system review of systems was performed and is negative for pertinent findings except as documented above in the HPI. - Constitutional Vitals: Temp Pulse Resp BP Pulse Ox 98.1 F 79 16 146/77 100 04/22/17 10:19 04/22/17 17:44 04/22/17 17:44 04/22/17 17:44 04/22/17 17:44 Internal Med - H&P Results - Labs CBC & Chem 7: 04/22/17 12:49 04/22/17 12:49 - Attending Attestation I examined this patient and my medical decision-making was reviewed with the Resident Physician. I agree with the documented findings, disposition and treatment plan as described except to the extent set forth below. Admitted for abdominal pain, which is currently resolved incidental findings on CTA concerning for malignancy PUlmonary evaluation requested Smoking cessation counseling provided. Nicotine supplementation provided No clinical signs of infectious etiology present at this time. Will monitor off abx.
[2017-04-22] MEDS ORDERED: Naloxone 0.4 MG/ML INJ IVP PRN (16:50)
[2017-04-22] MEDS ORDERED: *HR* HYDROcodone/Acet 5/325 mg TABLET PO PRN (16:55)
[2017-04-22] MEDS ORDERED: *HR* Morphine 2 MG/ML SYRINGE IVP PRN (16:55)
[2017-04-22] MEDS ORDERED: Acetaminophen 325 MG TABLET PO PRN (16:55)
[2017-04-22] MEDS: *HR* OxyCODONE/APAP 10/325 TABLET PO PRN (19:13)
[2017-04-22] MEDS: Nicotine 21 MG PATCH.TD24 TD SCH (19:13)
[2017-04-22] MEDS: *HR* Heparin 5,000 UNIT/ML VIAL SQ SCH (21:46)
[2017-04-23 05:42] LABS: Basophils % 0.6 %; Eosinophils # 0.1 K/mcL (0.0-0.6); Eosinophils % 1.3 %; Hematocrit 34.5 % (37.5-50.1); Hemoglobin 11.3 g/dL (12.9-16.9); Immature Granulocytes % 0.4 % (0-4); Lymphocytes # 2.2 K/mcL (0.6-4.6); Lymphocytes % 32.1 %; Mean Corpuscular HGB Conc 32.8 g/dL (31.6-35.5); Mean Corpuscular Hemoglobin 27.2 pg (28.0-33.3); Mean Corpuscular Volume 82.9 fL (83.0-100.0); Mean Platelet Volume 10.4 fL (9.4-12.4); Monocytes # 0.4 K/mcL (0.0-1.3); Monocytes % 5.4 %; Neutrophils # 4.1 K/mcL (1.6-8.9); Platelet Count 171 K/mcL (140-400); Red Blood Count 4.16 M/mcL (4.19-5.50); Red Cell Distribution Width 14.7 % (11.5-14.5); Segmented Neutrophils % 60.2 %
[2017-04-23 06:00] LABS: Magnesium 1.6 mg/dL (1.6-2.6); Phosphorous 3.6 mg/dL (2.3-4.7)
[2017-04-23 06:05] LABS: Alkaline Phosphatase 56 Units/L (38-126); Aspartate Amino Transferase 9 Units/L (5-34); BUN/Creatinine Ratio 9 (6-26); Bilirubin,Total 0.4 mg/dL (0.2-1.2); Blood Urea Nitrogen 7 mg/dL (8-26); Calcium 8.2 mg/dL (8.6-10.8); Chloride 105 mEq/L (98-109); Glucose 98 mg/dL (70-99); Osmolality,Calculated 284 (280-300); Potassium 3.5 mEq/L (3.5-4.5); Sodium 138 mEq/L (136-145); eGFR For African Americans > 60 (> 60); eGFR For Non-African Americans > 60 (> 60)
[2017-04-23 06:09] LABS: Alanine Aminotransferase < 6 Units/L (0-55)
[2017-04-23] MEDS: *HR* Heparin 5,000 UNIT/ML VIAL SQ SCH ×3 (06:09→22:59)
--- NOTE | 2017-04-23 06:23 | Electrocardiograph Report ---
[place] [facility] Test Date: 2017-04-22 Pat Name: Alireza Pope Department: 102 Room: 2A16 Gender: M Supervisor Nutritional Yeast: [facility] : 1960 Requested By: Cadence Romero Order Number: [id number] Reading MD: Feliberto Mcguire MD Measurements Intervals [place] Rate: 68 P: 69 [place]: 171 QRS: 28 QRSD: 88 T: 60 QT: 371 QTc: 387 Interpretive Statements SINUS RHYTHM Electronically Signed On 04-23-2017 6:21:17 EDT by Feliberto Mcguire MD
[2017-04-23 06:26] LABS: Carbon Dioxide 27 mEq/L (19-29)
--- NOTE | 2017-04-23 06:41 | Pulmonology Consult Note ---
Date of Encounter: 04/23/17 Time of Encounter: 06:41 Assessment and Plan (1) Lung mass Current Visit: Yes Status: Acute This is concerning for primary lung malignancy patient would be amenable to fine needle aspiration via bronchoscopy with endobronchial ultrasound please he is nothing by mouth at midnight for this reason. A bronchoscopy is recommended. The procedure , risks, benefits, complications, and expected outcomes have been reviewed. Benefits of diagnosis, as well as risks to include bleeding, infection, pneumothorax which may require surgical intervention, and in a small population. The patient is aware that sometimes test is nondiagnostic. Discussed with patient and agrees to proceed. (2) Chronic obstructive pulmonary disease Current Visit: No Status: Chronic Emphysema on CT scan long-time smoking history he will need outpatient evaluation for this including pulmonary function testing would discharge the patient with a short acting beta agonist inhaler to be used as needed Qualifiers: COPD type: unspecified COPD Qualified Code(s): J44.9 - Chronic obstructive pulmonary disease, unspecified (3) Tobacco abuse Current Visit: No Status: Chronic Counseled on tobacco cessation patient currently on nicotine replacement he is committed to stopping smoking (4) DVT prophylaxis Current Visit: Yes Status: Acute Recommend chemical DVT prophylaxis while inpatient unless contraindication arises History of Present Illness Consult date: 04/23/17 Requesting physician: Vandana Ellison Reason for consult: lung mass, abnormal CXR/CT Chief complaint: Abdominal Pain History of present illness: This is a 56-year-old and 1 to the past medical history of tobacco abuse and recent abdominal surgery for urachal cyst who presented ED yesterday for abdominal pain instantly found to have a 5 x 8 right perihilar lung mass with cavitation and associated hilar lymphadenopathy concerning for primary lung malignancy pulmonary was consulted for further evaluation of this. 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 No personal history of malignancy he does have family history father who had lung cancer. Does not take any blood thinning medications denies any complaints of a respiratory standpoint including hemoptysis cough fever or chills he has had weight loss over the last few years that he says has been somewhat intentional is that his taken employment this required him to be more active. He denies dyspnea on exertion does not take any inhalers currently Past Med Surg Social Fam HX - Past Medical History Medical history: arthritis, pulmonary embolus Psychiatric history: anxiety, depression, previous psychiatric hospitalization - Past Surgical History Surgical History: appendectomy, cholecystectomy, hip replacement, orthopedic, other, other - Social History Smoking Status: Current every day smoker Packs per day: 1 Smokeless Tobacco Status: No Alcohol use: none Drug use: none - Family History Father Race: Family Member Ethnicity: Non- Living Status: Age at : 72 Cause of : Colon Cancer Hx Family Cancer: Yes (Colon Cancer) Mother Race: Family Member Ethnicity: Non- Living Status: Age at : 80 Hx Family Cancer: Yes Hx Family Endocrine Disorder: Yes (DM) Medications and Allergies OxyCODONE/APAP 10/325 [Percocet 10/325 MG] 1 each PO Q6HR PRN #24 tab 04/17/17 [ Rx] 3 Allergy/AdvReac Type Severity Reaction Status Date / Time venlafaxine [From Effexor] Allergy Mild Vomiting Verified 04/22/17 10:21 ibuprofen [From Advil] Allergy swelling Verified 04/22/17 10:21 ondansetron Allergy Swelling Verified 04/22/17 10:21 [From Zofran (as hydrochloride)] All Systems: A 10-system review of systems was performed and is negative for pertinent findings except as documented above in the HPI. Physical Examination Vital Signs: Vital Signs, Last 4 Hours Temp Pulse Resp BP Pulse Ox 04/23/17 04:27 98.0 F 71 18 146/82 98 General appearance: no acute distress Eyes: nonicteric ENT: oropharynx moist Mallampati (class): 2 Effort: normal Auscultation: bilateral: clear Cardiovascular: regular rate and rhythm Gastrointestinal: other (Midline umbilical incision is healing without evidence of purulent discharge she does have mild tenderness to palpation positive bowel sounds) Extremities: no cyanosis, no edema, no clubbing Musculoskeletal: no deformities normal mental status, non-focal exam mood appropriate Results - Laboratory Findings CBC and BMP: 04/23/17 05:27 04/23/17 05:27 PT/INR, D-dimer PT 12.3 Seconds (9.4-12.1) H 04/22/17 13:26 Abnormal lab findings: Abnormal lab results RBC 4.16 M/mcL (4.19-5.50) L 04/23/17 05:27 Hgb 11.3 g/dL (12.9-16.9) L 04/23/17 05:27 Hct 34.5 % (37.5-50.1) L 04/23/17 05:27 MCV 82.9 fL (83.0-100.0) L 04/23/17 05:27 MCH 27.2 pg (28.0-33.3) L 04/23/17 05:27 RDW 14.7 % (11.5-14.5) H 04/23/17 05:27 PT 12.3 Seconds (9.4-12.1) H 04/22/17 13:26 BUN 7 mg/dL (8-26) L 04/23/17 05:27 Calcium 8.2 mg/dL (8.6-10.8) L 04/23/17 05:27 Albumin 3.0 g/dL (3.5-5.0) L 04/23/17 05:27 Albumin/Globulin Ratio 1.0 (1.1-2.2) L 04/23/17 05:27 Ur Specific [place] 1.009 (1.010-1.025) L 04/22/17 13:45 - Diagnostic Findings Chest x-ray: report reviewed, image reviewed CT scan - chest: report reviewed ( Patent central airways. Narrowing of the right upper lobe), image reviewed - Clinical Findings Intake & Output: Intake & Output 04/22/17 04/22/17 04/23/17 15:59 23:59 07:59 Intake Total 150 / 150 Output Total 300 / 300 Balance 150 / 150 -300 / -300 Weight 85.729 kg Consult Discharge Plan - Plan Referrals: Tai Mao DO [Primary Care Provider] -
[2017-04-23] MEDS: *HR* OxyCODONE/APAP 10/325 TABLET PO PRN ×3 (08:06→20:16)
[2017-04-23] MEDS: Nicotine 21 MG PATCH.TD24 TD SCH (08:06)
--- NOTE | 2017-04-23 09:48 | Internal Med Progress Note ---
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 denies SOB, cough, wheeze. states 50 lb weight loss in last 2 years possibly intentional. CXR was suggistive of PNA, but on CT T perihilar mass 5.0 x 3.3 and metastatic R hilar + interloar lymphadenopathy. - Suspected COPD/emphysema - PFT/workup outpatient with pulm - pulm following - respiratory Tx PRN - nothing by mouth at midnight - FNA bronchoscopy w/ endobronchial U/S tomorrow. (2) Chronic obstructive pulmonary disease Current Visit: No Status: Chronic Assessment and plan: emphysema on CT scan. - PFT/workup outpatient - Pulm following - Will D/c with short acting beta agonist inhaler PRN Qualifiers: COPD type: unspecified COPD Qualified Code(s): J44.9 - Chronic obstructive pulmonary disease, unspecified (3) Tobacco abuse Current Visit: No Status: Chronic Assessment and plan: Patient decided to quit upon this admission. 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 Patient reports no abdominal pain this morning. Patient denies SOB, dyspnea, cough, blood in sputum, fever, chills, nausea or vomiting. - Constitutional Vitals: Temp Pulse Resp BP Pulse Ox 97.7 F 68 17 161/84 95 04/23/17 07:27 04/23/17 07:27 04/23/17 07:27 04/23/17 07:27 04/23/17 07:27 General appearance: Present: cooperative, A&O X 3, pleasant, no acute distress, answers questions appropriately - Head Head exam: Present: atraumatic, normocephalic - Respiratory Respiratory exam: Present: CTAB. Absent: accessory muscle use, rales, rhonchi, wheezes - Cardiovascular Cardiovascular exam: Present: RRR, +S1, +S2. Absent: diastolic murmur, gallop, rubs, systolic murmur - GI/Abdominal GI/Abdominal exam: Present: normal bowel sounds, soft, no peritoneal signs. Absent: distended, tenderness - Neurological Exam Neurological exam: Present: alert, oriented X3 - Psychiatric Psychiatric exam: Present: normal affect, normal mood Internal Medicine: Result - Labs CBC & Chem 7: 04/23/17 05:27 04/23/17 05:27 Labs: Short CBC 04/23/17 Range/Units 05:27 WBC 6.9 (4.3-11.1) K/mcL Hgb 11.3 L (12.9-16.9) g/dL Hct 34.5 L (37.5-50.1) % Plt Count 171 (140-400) K/mcL Neutrophils # 4.1 (1.6-8.9) K/mcL BMP 04/23/17 05:27 Sodium 138 Potassium 3.5 Chloride 105 Carbon Dioxide 27 BUN 7 L Creatinine 0.80 Glucose 98 Calcium 8.2 L Liver Function 04/23/17 Range/Units 05:27 Total Bilirubin 0.4 (0.2-1.2) mg/dL AST 9 (5-34) Units/L ALT < 6 (0-55) Units/L Alkaline Phosphatase 56 (38-126) Units/L Albumin 3.0 L (3.5-5.0) g/dL - ABG Interpretation ABG results: PT/INR, D-dimer PT 12.3 Seconds (9.4-12.1) H 04/22/17 13:26 Consult Discharge Plan - Plan Referrals: Tai Mao DO [Primary Care Provider] - <Negrito Zapata - Last Filed: 04/23/17 17:54> Date of Encounter: 04/23/17 - Constitutional Vitals: Temp Pulse Resp BP Pulse Ox 97.4 F L 67 16 120/77 95 04/23/17 17:20 04/23/17 17:20 04/23/17 17:20 04/23/17 17:20 04/23/17 17:20 Internal Medicine: Result - Labs CBC & Chem 7: 04/23/17 05:27 04/23/17 05:27 Labs: Short CBC 04/23/17 Range/Units 05:27 WBC 6.9 (4.3-11.1) K/mcL Hgb 11.3 L (12.9-16.9) g/dL Hct 34.5 L (37.5-50.1) % Plt Count 171 (140-400) K/mcL Neutrophils # 4.1 (1.6-8.9) K/mcL BMP 04/23/17 05:27 Sodium 138 Potassium 3.5 Chloride 105 Carbon Dioxide 27 BUN 7 L Creatinine 0.80 Glucose 98 Calcium 8.2 L Liver Function 04/23/17 Range/Units 05:27 Total Bilirubin 0.4 (0.2-1.2) mg/dL AST 9 (5-34) Units/L ALT < 6 (0-55) Units/L Alkaline Phosphatase 56 (38-126) Units/L Albumin 3.0 L (3.5-5.0) g/dL - ABG Interpretation ABG results: PT/INR, D-dimer PT 12.3 Seconds (9.4-12.1) H 04/22/17 13:26 - Attending Attestation I examined this patient and my medical decision-making was reviewed with the Resident Physician. I agree with the documented findings, disposition and treatment plan as described except to the extent set forth below. Pulmonary input appreciated
[2017-04-24] MEDS: *HR* OxyCODONE/APAP 10/325 TABLET PO PRN ×2 (03:40→12:44)
[2017-04-24 05:11] LABS: Hemoglobin 11.2 g/dL (12.9-16.9); Mean Corpuscular Hemoglobin 26.5 pg (28.0-33.3); Mean Corpuscular Volume 82.9 fL (83.0-100.0); Mean Platelet Volume 10.2 fL (9.4-12.4); Platelet Count 165 K/mcL (140-400); Red Blood Count 4.22 M/mcL (4.19-5.50); Red Cell Distribution Width 14.7 % (11.5-14.5)
[2017-04-24 05:25] LABS: BUN/Creatinine Ratio 13 (6-26); Blood Urea Nitrogen 11 mg/dL (8-26); Calcium 8.6 mg/dL (8.6-10.8); Carbon Dioxide 27 mEq/L (19-29); Chloride 106 mEq/L (98-109); Glucose 106 mg/dL (70-99); Osmolality,Calculated 292 (280-300); Potassium 3.8 mEq/L (3.5-4.5); Sodium 141 mEq/L (136-145); eGFR For African Americans > 60 (> 60); eGFR For Non-African Americans > 60 (> 60)
[2017-04-24] MEDS: *HR* Heparin 5,000 UNIT/ML VIAL SQ SCH ×2 (06:04→14:44)
--- NOTE | 2017-04-24 07:16 | Internal Med Progress Note ---
<Donnie Noguera - Last Filed: 04/24/17 07:16> Date of Encounter: 04/24/17 Time of Encounter: 07:16 - Assessment and plan (1) Lung mass Status: Acute (2) Chronic obstructive pulmonary disease Status: Chronic Qualifiers: COPD type: unspecified COPD Qualified Code(s): J44.9 - Chronic obstructive pulmonary disease, unspecified (3) Tobacco abuse Status: Chronic (4) DVT prophylaxis Status: Acute - Subjective Interval history: Mr Pope is a 56 year old man on day 1 of admission who was admitted after developing abdominal pain after having a Urachal cyst removed on 03/17/17, and 5x8 perihilar lung mass with cavitation and associated edgar lymphadenopathy concerning for primary lung malignancy w/ 1 pack day smoking history, and 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 Patient reports no abdominal pain this morning. Patient denies SOB, dyspnea, cough, blood in sputum, fever, chills, nausea or vomiting. - Constitutional Vitals: Temp Pulse Resp BP Pulse Ox 97.6 F 68 18 144/81 97 04/24/17 05:06 04/24/17 05:06 04/24/17 05:06 04/24/17 05:06 04/24/17 05:06 General appearance: Present: cooperative, A&O X 3, pleasant, no acute distress, answers questions appropriately Internal Medicine: Result - Labs CBC & Chem 7: 04/24/17 04:50 04/24/17 04:50 Labs: Short CBC 04/24/17 Range/Units 04:50 WBC 6.5 (4.3-11.1) K/mcL Hgb 11.2 L (12.9-16.9) g/dL Hct 35.0 L (37.5-50.1) % Plt Count 165 (140-400) K/mcL BMP 04/24/17 04:50 Sodium 141 Potassium 3.8 Chloride 106 Carbon Dioxide 27 BUN 11 Creatinine 0.83 Glucose 106 H Calcium 8.6 - ABG Interpretation ABG results: PT/INR, D-dimer PT 12.3 Seconds (9.4-12.1) H 04/22/17 13:26 Consult Discharge Plan - Plan Instructions: Oxycodone/Acetaminophen (By mouth), Albuterol (By breathing), How to Stop Smoking (GEN) Additional Instructions: Patient to have FU within 1 week with PCP, and Pulmonology. Patient discharged with short acting beta agonist Referrals: Tai Mao DO [Primary Care Provider] - 05/01/17 1:00 pm () Skip Sunshine MD [Partnered Physician] - 05/14/17 9:45 am Prescriptions: Albuterol Sulfate [Albuterol Inhaler] 1 puff IH Q6HR PRN #1 inhaler PRN Reason: Dyspnea OxyCODONE/APAP 10/325 [Percocet 10/325 MG] 1 each PO Q6HR PRN #24 tab PRN Reason: Pain Nicotine Patch [Nicoderm] 1 each TD DAILY #30 patch.td24 <Negrito Zapata P - Last Filed: 04/24/17 18:39> Date of Encounter: 04/24/17 - Constitutional Vitals: Temp Pulse Resp BP Pulse Ox 97.9 F 63 20 124/80 95 04/24/17 12:49 04/24/17 14:42 04/24/17 13:20 04/24/17 14:42 04/24/17 14:42 Internal Medicine: Result - Labs CBC & Chem 7: 04/24/17 04:50 04/24/17 04:50 Labs: Short CBC 04/24/17 Range/Units 04:50 WBC 6.5 (4.3-11.1) K/mcL Hgb 11.2 L (12.9-16.9) g/dL Hct 35.0 L (37.5-50.1) % Plt Count 165 (140-400) K/mcL BMP 04/24/17 04:50 Sodium 141 Potassium 3.8 Chloride 106 Carbon Dioxide 27 BUN 11 Creatinine 0.83 Glucose 106 H Calcium 8.6 - ABG Interpretation ABG results: PT/INR, D-dimer PT 12.3 Seconds (9.4-12.1) H 04/22/17 13:26 - Attending Attestation I examined this patient and my medical decision-making was reviewed with the Resident Physician. I agree with the documented findings, disposition and treatment plan as described except to the extent set forth below.
[2017-04-24] MEDS: Nicotine 21 MG PATCH.TD24 TD SCH (08:27)
--- NOTE | 2017-04-24 10:21 | Anesthesia Evaluation PreOp ---
Date of Encounter: 04/24/17 Time of Encounter: 10:32 - Past History Planned Operation: EBUS Cardiac History: Denies any Significant Hx Pulmonary History: Smoker (40 years, quit 3 days ago), COPD GERENTOLOGICAL PHYSIOTHERAPIST History: Denies Any Significant HX Other Medical History: Other (H/O PE in 1981) Anesthesia History: No Prior Anesthetic Complications, Past Anesthesia Alcohol Use: none Drug use: none Medications and Allergies OxyCODONE/APAP 10/325 [Percocet 10/325 MG] 1 each PO Q6HR PRN #24 tab 04/17/17 [ Rx] 3 Allergy/AdvReac Type Severity Reaction Status Date / Time venlafaxine [From Effexor] Allergy Mild Vomiting Verified 04/22/17 10:21 ibuprofen [From Advil] Allergy swelling Verified 04/22/17 10:21 ondansetron Allergy Swelling Verified 04/22/17 10:21 [From Zofran (as hydrochloride)] - Meds/Allergy Pre-op Review Medications Reviewed: Yes Allergies Reviewed: Yes Beta Blockers on Current Med List: No Anesthesia Results - Labs 04/24/17 04:50 04/24/17 04:50 - Imaging EKG: report reviewed (04/22/2017 SR) Anesthesia Exam Vital Signs/O2 Sat, Most Current Temp Pulse Resp BP Pulse Ox 98.0 F 69 18 142/78 95 04/24/17 08:14 04/24/17 08:14 04/24/17 08:14 04/24/17 08:14 04/24/17 08:14 Height: 5'11'' Weight: 189 lbs NPO (# of Hours): 8 Pain Scale: 0 Pain Scale Used: Numeric (1 - 10) - HEENT Pupil (Motor): EOMI Mallampati: II Teeth: Edentulous Oral Opening: Greater than 3 - GERENTOLOGICAL PHYSIOTHERAPIST LOC: Oriented GERENTOLOGICAL PHYSIOTHERAPIST Motor: Normal RUE, Normal LUE, Normal RLE, Normal LLE, Normal Face GERENTOLOGICAL PHYSIOTHERAPIST Sensory: Normal: RUE, LUE, RLE, LLE, Face - Cardiac Rhythm: Regular Murmur: None - Pulmonary Breath Sounds: bilateral Clear Respiratory Effort: Symmetrical Anesthesia Assess/Plan ASA Score: 2 Modified Rhona Scale for Level of Consciousness: Cooperative, oriented, and tranquil Anesthetic Plan: General Monitoring Plan: Standard Monitors Recovery Plan: PACU
[2017-04-24] MEDS ORDERED: Albuterol 2.5 MG/3 ML NEBULIZER ONE (10:50)
--- NOTE | 2017-04-24 11:27 | Discharge Summary ---
<Donnie Noguera - Last Filed: 04/24/17 14:49> Date of Encounter: 04/24/17 Time of Encounter: 11:23 - Discharge Diagnosis (1) Lung mass Priority: Primary Status: Acute (2) Chronic obstructive pulmonary disease Priority: Secondary Status: Chronic Qualifiers: COPD type: unspecified COPD Qualified Code(s): J44.9 - Chronic obstructive pulmonary disease, unspecified (3) Tobacco abuse Priority: Secondary Status: Chronic (4) DVT prophylaxis Priority: Secondary Status: Acute - Discharge Medications Prescriptions: Albuterol Sulfate [Albuterol Inhaler] 1 puff IH Q6HR PRN #1 inhaler PRN Reason: Dyspnea OxyCODONE/APAP 10/325 [Percocet 10/325 MG] 1 each PO Q6HR PRN #24 tab PRN Reason: Pain Nicotine Patch [Nicoderm] 1 each TD DAILY #30 patch.td24 Home Medications: Albuterol Sulfate [Albuterol Inhaler] 1 puff IH Q6HR PRN #1 inhaler 04/24/17 [Rx ] Nicotine Patch [Nicoderm] 1 each TD DAILY #30 patch.td24 04/24/17 [Rx] OxyCODONE/APAP 10/325 [Percocet 10/325 MG] 1 each PO Q6HR PRN #24 tab 04/24/17 [ Rx] Allergies/Adverse Reactions: 3 Allergy/AdvReac Type Severity Reaction Status Date / Time venlafaxine [From Effexor] Allergy Mild Vomiting Verified 04/22/17 10:21 ibuprofen [From Advil] Allergy swelling Verified 04/22/17 10:21 ondansetron Allergy Swelling Verified 04/22/17 10:21 [From Zofran (as hydrochloride)] Date of admission: 04/22/17 16:24 Primary care physician: Tai Mao DO Consults: 04/22/17 17:01 Consult to Physician [CONS] Routine Consulting Provider: Skip Sunshine Reason for Consult: 5.0 cm x 3.3 cm cavitary mass in the perihilar right upper lobe, consistent with primary bronchogenic carcinoma. Call Completed: No 04/22/17 18:56 Consult to Printed Circuit Board Assembler [CONS] Routine Reason for SW Consult: diagnosis - Patient Status Disposition: Home, Self-Care Condition: Good - Discharge Instructions Instructions: Oxycodone/Acetaminophen (By mouth), Albuterol (By breathing), How to Stop Smoking (GEN) Follow Up With: Tai Mao DO [Primary Care Provider] - 05/01/17 1:00 pm () Skip Sunshine MD [Partnered Physician] - 05/14/17 9:45 am Additional Instructions: Patient to have FU within 1 week with PCP, and Pulmonology. Patient discharged with short acting beta agonist - Diet and Activity Activity: increase activity as tolerated Hospital course: Mr. 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 Pulm performed FNA with endobronchial U/S. As well, high suspicion of Emphysema on CT scan, patient to have PFT on outpatient. - Time Spent with Patient Total time spent providing and/or coordinating discharge services: - Constitutional Vitals: Temp Pulse Resp BP Pulse Ox 98.0 F 69 18 142/78 95 04/24/17 10:30 04/24/17 10:30 04/24/17 10:30 04/24/17 10:30 04/24/17 10:30 General appearance: Present: cooperative, A&O X 3, pleasant, no acute distress, answers questions appropriately - Respiratory Respiratory exam: Present: CTAB. Absent: accessory muscle use, rales, rhonchi, wheezes - Cardiovascular Cardiovascular exam: Present: RRR, +S1, +S2. Absent: diastolic murmur, gallop, rubs, systolic murmur - GI/Abdominal GI/Abdominal exam: Present: normal bowel sounds, soft, no peritoneal signs. Absent: distended, tenderness - Neurological Exam Neurological exam: Present: alert, oriented X3 - Psychiatric Psychiatric exam: Present: normal affect, normal mood <Negrito Zapata P - Last Filed: 04/24/17 18:40> Date of Encounter: 04/24/17 Date of admission: 04/22/17 16:24 Primary care physician: Tai Mao DO Consults: 04/22/17 17:01 Consult to Physician [CONS] Routine Consulting Provider: Skip Sunshine Reason for Consult: 5.0 cm x 3.3 cm cavitary mass in the perihilar right upper lobe, consistent with primary bronchogenic carcinoma. Call Completed: No 04/22/17 18:56 Consult to Printed Circuit Board Assembler [CONS] Routine Reason for SW Consult: diagnosis Hospital course: Mr. Ppoe is a 56 year old male - Time Spent with Patient Total time spent providing and/or coordinating discharge services: - Constitutional Vitals: Temp Pulse Resp BP Pulse Ox 97.9 F 63 20 124/80 95 04/24/17 12:49 04/24/17 14:42 04/24/17 13:20 04/24/17 14:42 04/24/17 14:42 - Attending Attestation I examined this patient and my medical decision-making was reviewed with the Resident Physician. I agree with the documented findings, disposition and treatment plan as described except to the extent set forth below.
[2017-04-24] MEDS ORDERED: *HR* EPINEPHrine 1 MG/10 ML SYRINGE ONE (12:04)
--- NOTE | 2017-04-24 12:31 | Anesthesia Evaluation Post Op ---
Date of Encounter: 04/24/17 Time of Encounter: 12:30 - Vital Signs Vital Signs: Vital Signs/O2 Sat, Most Current Temp Pulse Resp BP Pulse Ox 97.3 F L 78 14 126/87 97 04/24/17 12:06 04/24/17 12:26 04/24/17 12:26 04/24/17 12:26 04/24/17 12:26 - Lungs Lungs: Clear Ascult./Percussion - Airway Airway: Non-obstructed - Cardiovascular Regular Rate - Mental Status Mental Status: Alert & Oriented, Answers Appropriately - Pain Pain Scale: 0 Pain Scale used: Numeric (1 - 10) - Nausea Vomiting Nausea Vomiting: Not Present - Hydration Hydration: NPO, Has not voided - Discharge PostOp Status: Transfer Patient to floor
[2017-04-24 14:43] VITALS: BP 124/80
[2017-04-24] MEDS ORDERED: *HR* Propofol 200 MG/20 ML VIAL IVP ONE (15:17)
[2017-04-24] MEDS ORDERED: Lidocaine -MPF 4% 5 ML AMPUL INFILT ONE (15:17)
[2017-04-24] MEDS ORDERED: *HR* Propofol 500 MG/50 ML BOTTLE IVC ONE (15:17)
[2017-04-24] MEDS ORDERED: Lidocaine -MPF 2% 5 ML VIAL INFILT ONE (15:17)
== END 2017-04-24 15:18 | disposition home or self-care (01) ==
LOC: 2ANU 10:17 → EMEROO 10:17 → 2ANU 18:05
PROVIDERS: ADMIT Internal Medicine; ATTEND Internal Medicine
PROC: ENDOBBX (2017-04-24 11:00)